=== PATIENT | female | born 1990 | race African-American/Black ===

== ENCOUNTER 2017-12-25 15:38 | Emergency (ER) | payer OTHER ==
[~2017-12-25] VITALS: Ht 165.1 cm; Wt 59.0 kg
[2017-12-25 15:38] VITALS: BP 110/71
[~2017-12-25 15:38] MED LIST: DOXEPIN 50MG CA50 M1 PO; NAPROSYN500 MG PO; OXCARBAZEPINE150 MG PO; SERTRALINE HCL50 MG PO; ZANTAC 150MG T150 MG PO
[2017-12-25] MEDS ORDERED: TRAMADOL 50 MG50 MG PO (15:52)
[2017-12-25] MEDS ORDERED: MOBIC15 MG PO (15:52)
== END 2017-12-25 15:51 | disposition home or self-care (01) ==
LOC: ER 15:38
DX: G56.01 Carpal tunnel syndrome, right upper limb (principal); F31.9 Bipolar disorder, unspecified; F41.9 Anxiety disorder, unspecified; F20.9 Schizophrenia, unspecified; F17.210 Nicotine dependence, cigarettes, uncomplicated; Z88.2 Allergy status to sulfonamides